=== PATIENT | female | born 1940 | race Caucasian/White ===

== ENCOUNTER → 2021-03-05 | Outpatient (CLI) | payer MEDICARE ==
[~2021-03-05] MED LIST: AMLODIPINE BESYL5 MG PO; BENICAR5 MG PO; BUMETANIDE1 MG PO; CARVEDILOL12.5 MG PO; CATAPRES 0.1MG0.1 MG PO; CIPRO500 MG PO; COQ-10100 MG PO; COREG6.25 MG PO; HYDRALAZINE HCL50 MG PO; KLONOPIN TAB 00.5 MG PO; OS-CAL 500+D31 EACH PO; TYLENOL EXTRA500 MG PO; VITAMIN B-121000 MCG PO; VITAMIN B-12250 MC2 SL; [UNRECOGNIZED DRUG - OTHER] PO
== END ==
LOC: KOH-I 09:48
DX: M47.26 Other spondylosis with radiculopathy, lumbar region (principal)
CPT/HCPCS: 72100

== ENCOUNTER → 2021-03-13 | Outpatient (CLI) | payer MEDICARE | LOC: KOH-I 03-11 16:00 | DX: M51.16 Intervertebral disc disorders with radiculopathy, lumbar region (principal); R53.1 Weakness; M47.26 Other spondylosis with radiculopathy, lumbar region; M48.061 Spinal stenosis, lumbar region without neurogenic claudication | CPT/HCPCS: 72148 ==

== ENCOUNTER → 2021-04-16 | Outpatient (CLI) | payer MEDICARE | LOC: EXRD 13:30 | DX: Z00.00 Encounter for general adult medical examination without abnormal findings (principal); M81.0 Age-related osteoporosis without current pathological fracture | CPT/HCPCS: 77080 ==

== ENCOUNTER → 2021-05-12 | Outpatient (CLI) | payer MEDICARE ==
[~2021-05-12] MED LIST changes: -BUMETANIDE1 MG PO; +BUMETANIDE2 MG PO
[2021-05-12 11:58] LABS: HEMOGLOBIN 10.9 gm/dl (12.3-15.3); RED BLOOD COUNT 3.36 M/UL (4.00-5.10); WHITE BLOOD COUNT 5.9 K/UL (4.5-11.0)
== END ==
LOC: OPSV2 10:57 → EDSTATUS 11:00
PROVIDERS: Orthopaedic Surgery
DX: Z01.818 Encounter for other preprocedural examination (principal); M48.061 Spinal stenosis, lumbar region without neurogenic claudication; M41.86 Other forms of scoliosis, lumbar region
CPT/HCPCS: 36415; 71046; 80048; 81001; 85025; 85610; 85730; 87081; 87086; 93005

== ENCOUNTER → 2021-06-05 | Outpatient (CLI) | payer MEDICARE ==
[2021-06-05 11:54] LABS: HEMOGLOBIN 11.2 gm/dl (12.3-15.3); RED BLOOD COUNT 3.51 M/UL (4.00-5.10); WHITE BLOOD COUNT 6.8 K/UL (4.5-11.0)
== END ==
LOC: LAB 11:02
PROVIDERS: Physician Assistant
DX: R11.2 Nausea with vomiting, unspecified (principal); R19.7 Diarrhea, unspecified; R32 Unspecified urinary incontinence
CPT/HCPCS: 80053; 81001; 83735; 85025; J7030

== ENCOUNTER → 2021-06-05 | Outpatient (CLI) | payer MEDICARE ==
[2021-06-05 16:46] LABS: ADENOVIRUS F 40/41 Not Detected (Negative); ASTROVIRUS Not Detected (Negative); CAMPYLOBACTER Not Detected (Negative); CLOSTRIDIUM DIFFICILE TOX A/B Not Detected (Negative); CRYPTOSPORIDIUM Not Detected (Negative); E.COLI 0157 Not Detected (Negative); ENTAMOEBA HISTOLYTICA Not Detected (Negative); ENTEROAGGREGATIVE E.COLI (EAEC Not Detected (Negative); ENTEROPATHOGENIC E.COLI (EPEC) Not Detected (Negative); ENTEROTOXIGENIC E.COLI (ETEC) Not Detected (Negative); GIARDIA LAMBLIA Not Detected (Negative); NOROVIRUS GI/GII Not Detected (Negative); PLESIOMONAS SHIGELLOIDES Not Detected (Negative); ROTOVIRUS A Not Detected (Negative); SALMONELLA Not Detected (Negative); SAPOVIRUS Not Detected (Negative); SHIG/ENTEROINVAS.ECOLI (EIEC) Not Detected (Negative); SHIGA-LIK TOX.PRO.E.COLI (STEC Not Detected (Negative); VIBRIO Not Detected (Negative); VIBRIO CHOLERAE Not Detected (Negative); YERSINIA ENTEROCOLITICA Not Detected (Negative)
== END ==
LOC: OPSV 14:00
PROVIDERS: Internal Medicine
DX: N18.30 Chronic kidney disease, stage 3 unspecified (principal); R11.2 Nausea with vomiting, unspecified
CPT/HCPCS: 36415; 80048; 87507; 96360

== ENCOUNTER → 2021-07-01 | Outpatient (CLI) | payer MEDICARE | LOC: KOH-I 13:00 → US 13:44 | DX: N28.89 Other specified disorders of kidney and ureter (principal); N26.1 Atrophy of kidney (terminal) ==

== ENCOUNTER → 2021-07-02 | Outpatient (CLI) | payer MEDICARE | LOC: OPSV2 09:44 → EDSTATUS 10:00 | DX: Z01.818 Encounter for other preprocedural examination (principal) | CPT/HCPCS: 71046; 87077; 87086; 87186; 93005 ==

== ENCOUNTER → 2021-09-16 | Outpatient (CLI) | payer MEDICARE ==
[~2021-09-16] MED LIST changes: +HYDRALAZINE HC100 MG PO; -HYDRALAZINE HCL50 MG PO
[2021-09-16 10:32] LABS: HEMOGLOBIN 10.6 gm/dl (12.3-15.3); RED BLOOD COUNT 3.46 M/UL (4.00-5.10); WHITE BLOOD COUNT 5.6 K/UL (4.5-11.0)
== END ==
LOC: EDSTATUS 09:00 → OPSV2 09:00
PROVIDERS: Orthopaedic Surgery
DX: Z01.818 Encounter for other preprocedural examination (principal); M48.061 Spinal stenosis, lumbar region without neurogenic claudication; M41.9 Scoliosis, unspecified; J84.9 Interstitial pulmonary disease, unspecified
CPT/HCPCS: 71046; 80048; 81001; 85027; 93005

== ENCOUNTER → 2021-09-29 | Outpatient (CLI) | payer MEDICARE ==
[~2021-09-29] MED LIST changes: +CALCIUM 600 +1 EAC7 PO; +CENTRUM SILVER1 EAC1 PO; +FLU VACCINE IM; +MULTIVITAMIN1 EACH PO; -OS-CAL 500+D31 EACH PO; +SODIUM CHLORIDE1 G1 PO; -[UNRECOGNIZED DRUG - OTHER] PO
== END ==
LOC: LAB 09:38
PROVIDERS: Orthopaedic Surgery
DX: Z01.812 Encounter for preprocedural laboratory examination (principal); I12.9 Hypertensive chronic kidney disease with stage 1 through stage 4 chronic kidney disease, or unspecified chronic kidney disease; N18.30 Chronic kidney disease, stage 3 unspecified
CPT/HCPCS: 36415; 80048; 85610; 85730; 86850; 86900; 86901

== ENCOUNTER 2021-09-30 06:00 | Inpatient (IN) | payer MEDICARE ==
[~2021-09-30] VITALS: Ht 167.6 cm; Wt 100.7 kg
[~2021-09-30 06:00] MED LIST changes: -CENTRUM SILVER1 EAC1 PO; -FLU VACCINE IM; -SODIUM CHLORIDE1 G1 PO
[2021-09-30] MEDS ORDERED: CENTRUM SILVER1 EAC1 PO (07:04)
[2021-09-30 15:49] LABS: HEMOGLOBIN 9.6 gm/dl (12.3-15.3); RED BLOOD COUNT 3.17 M/UL (4.00-5.10); WHITE BLOOD COUNT 7.3 K/UL (4.5-11.0)
[2021-10-01 05:24] LABS: HEMOGLOBIN 8.6 gm/dl (12.3-15.3); RED BLOOD COUNT 2.87 M/UL (4.00-5.10)
[2021-10-01 05:25] LABS: WHITE BLOOD COUNT 9.6 K/UL (4.5-11.0)
[2021-10-02 05:24] LABS: HEMOGLOBIN 9.1 gm/dl (12.3-15.3); RED BLOOD COUNT 2.99 M/UL (4.00-5.10); WHITE BLOOD COUNT 19.4 K/UL (4.5-11.0)
[2021-10-03 05:28] LABS: HEMOGLOBIN 8.2 gm/dl (12.3-15.3); RED BLOOD COUNT 2.74 M/UL (4.00-5.10)
[2021-10-03 05:29] LABS: WHITE BLOOD COUNT 14.2 K/UL (4.5-11.0)
[2021-10-04 04:48] LABS: HEMOGLOBIN 8.1 gm/dl (12.3-15.3); RED BLOOD COUNT 2.71 M/UL (4.00-5.10)
[2021-10-04 04:50] LABS: WHITE BLOOD COUNT 10.3 K/UL (4.5-11.0)
[2021-10-05 06:44] LABS: CREATININE, URINE 47.3 mg/dL (Not Estab.)
[2021-10-05 07:49] LABS: HEMOGLOBIN 8.6 gm/dl (12.3-15.3); RED BLOOD COUNT 2.96 M/UL (4.00-5.10); WHITE BLOOD COUNT 11.8 K/UL (4.5-11.0)
[2021-10-05] MEDS ORDERED: FLU VACCINE IM (10:26)
[2021-10-05] MEDS ORDERED: SODIUM CHLORIDE1 G1 PO (10:26)
== END 2021-10-05 15:01 | disposition home or self-care (01) | DRG 515 ==
LOC: OR 06:00 → CCU 16:45 → M/S 10-04 11:33
PROVIDERS: Internal Medicine; Internal Medicine Nephrology; ADMIT Orthopaedic Surgery
PROC: 01NB0ZZ Release Lumbar Nerve, Open Approach (ICD-10-PCS; principal; 2021-09-30 09:30)
DX: M47.26 Other spondylosis with radiculopathy, lumbar region (principal); N17.0 Acute kidney failure with tubular necrosis; Z20.822 Contact with and (suspected) exposure to COVID-19; E87.1 Hypo-osmolality and hyponatremia; D62 Acute posthemorrhagic anemia; G24.8 Other dystonia; I13.0 Hypertensive heart and chronic kidney disease with heart failure and stage 1 through stage 4 chronic kidney disease, or unspecified chronic kidney disease; K21.9 Gastro-esophageal reflux disease without esophagitis; I50.9 Heart failure, unspecified; N18.30 Chronic kidney disease, stage 3 unspecified; M48.061 Spinal stenosis, lumbar region without neurogenic claudication; F41.9 Anxiety disorder, unspecified; Z96.653 Presence of artificial knee joint, bilateral; G25.0 Essential tremor; E87.6 Hypokalemia; M16.11 Unilateral primary osteoarthritis, right hip; D63.1 Anemia in chronic kidney disease; M41.86 Other forms of scoliosis, lumbar region; Z90.49 Acquired absence of other specified parts of digestive tract; Z98.41 Cataract extraction status, right eye; Z83.3 Family history of diabetes mellitus; Z82.49 Family history of ischemic heart disease and other diseases of the circulatory system; Z88.5 Allergy status to narcotic agent; Z88.0 Allergy status to penicillin; Z88.8 Allergy status to other drugs, medicaments and biological substances; Z91.041 Radiographic dye allergy status; Z87.01 Personal history of pneumonia (recurrent)
CPT/HCPCS: 36415; 71045; 72100; 76000; 80048; 80053; 81001; 82043; 82570; 82803; 83735; 83880; 84156; 85025; 85027; 89050; 94640; 94664; 94760; 97110-GP-CQ; 97116-GP-CQ; 97161; 97167; 97530-GP-CQ; 97535; C1781; J0690; J1040; J1100; J1170; J1644; J2001; J2270; J2370; J2405; J2704; J3010; J3370; J7030; J7040; J7120

== ENCOUNTER → 2021-10-23 | Outpatient (CLI) | payer MEDICARE ==
[~2021-10-23] MED LIST changes: +CENTRUM SILVER1 EAC1 PO; +FLU VACCINE IM; +SODIUM CHLORIDE1 G1 PO
== END ==
LOC: KOH-I 10:32
DX: R05.9 Cough, unspecified (principal); R91.8 Other nonspecific abnormal finding of lung field
CPT/HCPCS: 71046